=== PATIENT | female | born 1990 | race Caucasian/White ===

== ENCOUNTER 2018-05-15 09:04 | Emergency (ER) | payer OTHER, SELFPAY ==
--- NOTE | 2018-05-15 10:06 | ER ---
Nurse's Notes [facility] Name: Dimple Pak Age: 27 yrs Sex: Female : 1990 Arrival Date: 05/15/2018 Time: 09:07 Bed 15 Private MD: Diagnosis: Cutaneous abscess of face Presentation: 05/15 09:21 Presenting complaint: Patient states: I HAD A PIMPLE ON MY LIP A MONTH AGO AND I POPPED bp IT, AND I GUESS IT NEVER WENT AWAY. ALSO I GOT THESE BUMPS ON MY LEGS THAT I SCRATCHED AND THEY LOOK WEIRD. Transition of care: patient was not received from another setting of care. Onset of symptoms is unknown. Risk Assessment: Do you want to hurt yourself or someone else? Patient reports no desire to harm self or others. Initial Sepsis Screen: Does the patient meet any 2 criteria? No. Patient's initial sepsis screen is negative. Does the patient have a suspected source of infection? No. Patient's initial sepsis screen is negative. Care prior to arrival: None. 09:21 Method Of Arrival: Ambulatory bp 09:21 Acuity: STU 5 bp Triage Assessment: 09:23 General: Appears in no apparent distress. comfortable, slender, Behavior is calm, bp cooperative, appropriate for age. Pain: Complains of pain in mouth. EENT: No deficits noted. Neuro: Level of Consciousness is awake, alert, obeys commands, Oriented to person, place, time, situation, Appropriate for age. Cardiovascular: No deficits noted. Respiratory: Airway is patent Respiratory effort is even, unlabored, Respiratory pattern is regular, symmetrical. GI: No signs and/or symptoms were reported involving the gastrointestinal system. : No signs and/or symptoms were reported regarding the genitourinary system. Derm: Reports LEFT UPPER LIP RECURRENT "PIMPLE". Musculoskeletal: Circulation, motion, and sensation intact. Range of motion: intact in all extremities. 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 - Social history:: Smoking status: Patient uses tobacco products, smokes one pack cigarettes per day. - Ebola Screening: : Patient negative for fever greater than or equal to 101.5 degrees Fahrenheit, and additional compatible Ebola Virus Disease symptoms Patient denies exposure to infectious person Patient denies travel to an Ebola-affected area in the 21 days before illness onset No symptoms or risks identified at this time. Screenin:26 Abuse screen: Denies threats or abuse. Denies injuries from another. Nutritional bp screening: No deficits noted. Tuberculosis screening: No symptoms or risk factors identified. Fall Risk None identified. Assessment: 09:26 General: SEE TRIAGE NOTE. bp 10:15 Reassessment: D/C ON HOLD FOR SHOT TIME. bp 10:29 Reassessment: PT D/C HOME, DX WITH CUTANEOUS ABSCESS OF FACE. bp Vital Signs: 09:25 BP 134 / 99; Pulse 80; Resp 14; Temp 98; Pulse Ox 100% ; Weight 54.43 kg; Height 5 ft. bp 4 in. (162.56 cm); 10:20 BP 110 / 66; Pulse 58; Resp 16; Pulse Ox 100% ; bp 09:25 Body Mass Index 20.60 (54.43 kg, 162.56 cm) bp ED Course: 09:07 Patient arrived in ED. mr 09:14 Will Lyles, BRYAN is Primary Nurse. bp 09:20 Smith Mckinney NP is PHCP. pm1 09:20 Laurent Hooks MD is Attending Physician. pm1 09:22 Triage completed. bp 09:25 Arm band placed on. bp 09:26 Patient has correct armband on for positive identification. Bed in low position. Call bp light in reach. Side rails up X2. 10:30 No provider procedures requiring assistance completed. Patient did not have IV access bp during this emergency room visit. Administered Medications: 10:15 Drug: Tetanus-Diphtheria Toxoid Adult 0.5 ml {Hair Or Beauty Salon Assistant: Wedit. Exp: bp 04/30/2020. Lot #: [id number]. } Route: IM; Site: right deltoid; 10:28 Follow up: Response: No adverse reaction bp 10:15 Drug: Clindamycin 300 mg Route: PO; bp 10:28 Follow up: Response: No adverse reaction bp 10:26 Not Given (Other Intervention Used): Clindamycin 600 mg IM once bp Outcome: 10:06 Discharge ordered by . pm1 10:30 Discharged to home ambulatory. bp 10:30 Condition: stable 10:30 Discharge instructions given to patient, Instructed on discharge instructions, follow up and referral plans. medication usage, Demonstrated understanding of instructions, follow-up care, medications, Prescriptions given X 1. 10:31 Patient left the ED. bp Signatures: Sharita Lion HankSmith, ANALYST ANALYST pm1 Will Lyles, RN RN bp
--- NOTE | 2018-05-15 10:07 | EDPHYS ---
Physician Documentation [facility] Name: Dimple Pak Age: 27 yrs Sex: Female : 1990 Arrival Date: 05/15/2018 Time: 09:07 Bed 15 Private MD: ED Physician Laurent Hooks HPI: 05/15 10:00 This 27 yrs old Female presents to ER via Ambulatory with complaints of pm1 Abscess on face. 10:00 The patient presents with an abscess of the mouth. Description: raised, swollen. Onset: pm1 The symptoms/episode began/occurred 1 month(s) ago, and became worse yesterday. Possible cause(s): unknown. Associated signs and symptoms: Pertinent negatives: fever. Modifying factors: the symptoms are alleviated by squeezing the lesion and expressing the contents, the symptoms are aggravated by squeezing the lesion and expressing the contents, touching. Severity of symptoms: in the emergency department the symptoms are actually worse. The patient has not recently seen a physician. Ant bites to lower legs. Never been bitten by ants. Left side of mouth. Pimple to side of mouth for 1 month that got worse yesterday. Expressed pus, that relieved pain but more swollen.. 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 - Social history:: Smoking status: Patient uses tobacco products, smokes one pack cigarettes per day. - Ebola Screening: : Patient negative for fever greater than or equal to 101.5 degrees Fahrenheit, and additional compatible Ebola Virus Disease symptoms Patient denies exposure to infectious person Patient denies travel to an Ebola-affected area in the 21 days before illness onset No symptoms or risks identified at this time. ROS: 10:00 Constitutional: Negative for fever, chills, and weight loss, Eyes: Negative for injury, pm1 pain, redness, and discharge, ENT: Negative for injury, pain, and discharge, Neck: Negative for injury, pain, and swelling, Cardiovascular: Negative for chest pain, palpitations, and edema, Respiratory: Negative for shortness of breath, cough, wheezing, and pleuritic chest pain, Abdomen/GI: Negative for abdominal pain, nausea, vomiting, diarrhea, and constipation, Back: Negative for injury and pain, : Negative for injury, bleeding, discharge, and swelling, MS/Extremity: Negative for injury and deformity. 10:00 Neuro: Negative for headache, weakness, numbness, tingling, and seizure. 10:00 Skin: Positive for abscess, of the mouth, Negative for cellulitis. Exam: 10:00 Constitutional: This is a well developed, well nourished patient who is awake, alert, pm1 and in no acute distress. Head/Face: Normocephalic, atraumatic. Eyes: Pupils equal round and reactive to light, extra-ocular motions intact. Lids and lashes normal. Conjunctiva and sclera are non-icteric and not injected. Cornea within normal limits. Periorbital areas with no swelling, redness, or edema. ENT: Nares patent. No nasal discharge, no septal abnormalities noted. Tympanic membranes are normal and external auditory canals are clear. Oropharynx with no redness, swelling, or masses, exudates, or evidence of obstruction, uvula midline. Mucous membranes moist. Neck: Trachea midline, no thyromegaly or masses palpated, and no cervical lymphadenopathy. Supple, full range of motion without nuchal rigidity, or vertebral point tenderness. No Meningismus. Chest/axilla: Normal chest wall appearance and motion. Nontender with no deformity. No lesions are appreciated. Cardiovascular: Regular rate and rhythm with a normal S1 and S2. No gallops, murmurs, or rubs. Normal PMI, no JVD. No pulse deficits. Respiratory: Lungs have equal breath sounds bilaterally, clear to auscultation and percussion. No rales, rhonchi or wheezes noted. No increased work of breathing, no retractions or nasal flaring. Abdomen/GI: Soft, non-tender, with normal bowel sounds. No distension or tympany. No guarding or rebound. No evidence of tenderness throughout. Back: No spinal tenderness. No costovertebral tenderness. Full range of motion. 10:00 Skin: Appearance: normal except for affected area, abscess, that is small, approximately 1 cm(s), of the mouth, negative drainage, fluctuance, pointing, surrounding cellulitis. Vital Signs: 09:25 BP 134 / 99; Pulse 80; Resp 14; Temp 98; Pulse Ox 100% ; Weight 54.43 kg; Height 5 ft. bp 4 in. (162.56 cm); 10:20 BP 110 / 66; Pulse 58; Resp 16; Pulse Ox 100% ; bp 09:25 Body Mass Index 20.60 (54.43 kg, 162.56 cm) bp MDM: 09:21 Patient medically screened. pm1 09:40 Data reviewed: vital signs. Data interpreted: Pulse oximetry: on room air is 100 %. pm1 Interpretation: normal. Counseling: I had a detailed discussion with the patient and/or guardian regarding: the historical points, exam findings, and any diagnostic results supporting the discharge/admit diagnosis, the need for outpatient follow up, to return to the emergency department if symptoms worsen or persist or if there are any questions or concerns that arise at home. Administered Medications: 10:15 Drug: Tetanus-Diphtheria Toxoid Adult 0.5 ml {Senior Benefits Analyst: [employer]. Exp: bp 04/30/2020. Lot #: [id number]. } Route: IM; Site: right deltoid; 10:28 Follow up: Response: No adverse reaction bp 10:15 Drug: Clindamycin 300 mg Route: PO; bp 10:28 Follow up: Response: No adverse reaction bp 10:26 Not Given (Other Intervention Used): Clindamycin 600 mg IM once bp Disposition: 18 10:06 Discharged to Home. Impression: Cutaneous abscess of face. - Condition is Stable. - Discharge Instructions: Skin Abscess. - Prescriptions for Clindamycin HCl 300 mg Oral Capsule - take 1 capsule by ORAL route every 6 hours for 10 days; 40 capsule. - Medication Reconciliation Form, Thank You Letter, Antibiotic Education form. - Follow up: Emergency Department; When: As needed; Reason: Worsening of condition. Follow up: Private Physician; When: 2 - 3 days; Reason: Recheck today's complaints, Continuance of care, Re-evaluation by your physician. - Problem is new. - Symptoms have improved. Addendum: 05/16/2018 13:38 Co-signature as Attending Physician, Laurent Hooks MD I agree with the assessment and k dr plan of care. Signatures: Laurent Hooks MD MD [facility] Smith Mckinney NP GEOTHERMAL PLANT MANAGER pm1 Rafal, Will, RN RN bp Corrections: (The following items were deleted from the chart) 05/15 10:31 10:06 05/15/2018 10:06 Discharged to Home. Impression: Cutaneous abscess of face. bp Condition is Stable. Forms are Medication Reconciliation Form, Thank You Letter, Antibiotic Education, Prescription Opioid Use. Follow up: Emergency Department; When: As needed; Reason: Worsening of condition. Follow up: Private Physician; When: 2 - 3 days; Reason: Recheck today's complaints, Continuance of care, Re-evaluation by your physician. Problem is new. Symptoms have improved. pm1
[2018-05-15] MEDS ORDERED: CLINDAMYCIN HCL 150 MG CAP ONE (10:24)
[2018-05-15] MEDS ORDERED: TETANUS & DIPHTHERIA TOX,ADULT 0.5 ML VIAL ONE (10:25)
== END 2018-05-15 10:31 | disposition home or self-care (01) ==
LOC: ER 09:04
DX: L02.01 Cutaneous abscess of face (principal); F17.210 Nicotine dependence, cigarettes, uncomplicated; Z23 Encounter for immunization
CPT/HCPCS: 90714; 99283

== ENCOUNTER 2018-07-12 11:04 | Emergency (ER) | payer OTHER, SELFPAY ==
--- OUTSIDE RECORDS SUMMARY | 2018-07-12 11:06 | XMS REPORT ---
:1990 [facility] Address [address] [place] [address] Dr. Ramírez [address] [place] [id number] Care Team Providers Name Role Phone Unavailable Unavailable Unavailable Problems This patient has no known problems. Allergies, Adverse Reactions, Alerts This patient has no known allergies or adverse reactions. Medications This patient has no known medications.
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
[2018-07-12 15:34] LABS: Urine Blood TRACE (NEG); Urine Glucose NEGATIVE (NEG); Urine Protein 2+ (NEG); Urine Specific Gravity 1.025 (1.005-1.030); Urine pH 5.5 (5.0-7.0)
== END 2018-07-12 13:36 | disposition home or self-care (01) ==
LOC: ER 11:04
DX: S00.90XA Unspecified superficial injury of unspecified part of head, initial encounter (principal); S80.211A Abrasion, right knee, initial encounter; S50.312A Abrasion of left elbow, initial encounter; M25.561 Pain in right knee; R51 Headache; Y04.8XXA Assault by other bodily force, initial encounter; F17.210 Nicotine dependence, cigarettes, uncomplicated
CPT/HCPCS: 70450; 72125; 81003; 81025; 99284

== ENCOUNTER 2018-12-26 17:16 | Emergency (ER) | payer OTHER ==
--- OUTSIDE RECORDS SUMMARY | 2018-12-26 17:19 | XMS REPORT ---
:1990 [facility] Address [address] [place] [address] Dr. Ramírez [address] [place] [id number] Care Team Providers Name Role Phone Unavailable Unavailable Unavailable Problems This patient has no known problems. Allergies, Adverse Reactions, Alerts This patient has no known allergies or adverse reactions. Medications This patient has no known medications.
[2018-12-26] MEDS ORDERED: FENTANYL CITR 100 MCG/2 ML ONE (18:28)
[2018-12-26] MEDS ORDERED: NA CHLORIDE 0.9% 2,000 ML ONE (18:28)
[2018-12-26 18:35] LABS: Absolute Lymphocytes (CBC) 1.6 K/uL (0.7-4.9); Absolute Monocytes 0.9 K/uL (0.1-1.3); Absolute Neutrophil 6.8 K/uL (1.8-8.0); Basophils % 0.4 % (0-1.3); Eosinophils % 1.3 % (0-4.4); Hematocrit 38.7 % (36.0-45.0); MPV 9.5 fL (7.6-11.3); Monocytes % 9.5 % (3.3-12.3); RBC Red Blood Cell Count 4.58 M/uL (3.86-4.86)
[2018-12-26 18:44] LABS: Potassium 3.3 mmol/L (3.5-5.1)
[2018-12-26 18:45] LABS: Urine Blood TRACE (NEG); Urine Glucose NEGATIVE (NEG); Urine Protein 2+ (NEG); Urine pH 5.5 (5.0-7.0)
[2018-12-26] MEDS ORDERED: CLINDAMYCIN INJ 300 MG in NA CHLORIDE 0.9% 50 ML IV SCH (19:00)
--- NOTE | 2018-12-26 19:45 | RAD REPORT ---
EXAM DESCRIPTION: CT - Soft Tissue Neck W/Contr CLINICAL HISTORY: FACIAL PAIN Facial pain and swelling. COMPARISON: Head C Spine Mpr Wo Con dated 07/12/[address] scans are performed using dose optimization technique as appropriate and may includ e automated exposure control or mA/KV adjustment according to patient size. FINDINGS: A large abscess is present along the buccal surface of the right mandibular ramus measurin g 27 x 14 mm. The abscess appears to originate from a large 9 mm periapical abscess involving the rig ht mandibular second molar which is significantly eroded. There is significant right-sided soft tissu e swelling involving the right aspect of the mandible. Multiple enlarged submental and right submandi bular lymph nodes are present. Reactive adenopathy seen also along the right jugular chain. No vascul ar thrombosis identified. No extension of the abscess into the mediastinum seen. No additional abnormality is seen involving the neck soft tissues. IMPRESSION: Large odontogenic abscess seen along the right buccal cortex of the mandible as detailed above.
[2018-12-26] MEDS ORDERED: LIDOCAINE JELLY 2%- 5 ML TUBE ONE ×2 (20:35→22:22)
[2018-12-26] MEDS ORDERED: MORPHINE 4 MG/ML SYR ONE ×2 (20:36→22:22)
--- NOTE | 2018-12-26 22:03 | EDPHYS ---
Physician Documentation [facility] Name: Dimple Pak Age: 28 yrs Sex: Female : 1990 Arrival Date: 12/26/2018 Time: 17:20 Bed 14 Private MD: ED Physician Remy Recinos HPI: 12/26 17:59 This 28 yrs old Female presents to ER via Ambulatory with complaints of snw Toothache. 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 - Social history:: Smoking status: Patient uses tobacco products, smokes one pack cigarettes per day. - Ebola Screening: : No symptoms or risks identified at this time. ROS: 17:58 Constitutional: Negative for fever, chills, and weight loss, Eyes: Negative for injury, snw pain, redness, and discharge, Neck: Negative for injury, pain, and swelling, Cardiovascular: Negative for chest pain, palpitations, and edema, Respiratory: Negative for shortness of breath, cough, wheezing, and pleuritic chest pain, Abdomen/GI: Negative for abdominal pain, nausea, vomiting, diarrhea, and constipation, Back: Negative for injury and pain, : Negative for injury, bleeding, discharge, and swelling, MS/Extremity: Negative for injury and deformity, Skin: Negative for injury, rash, and discoloration, Neuro: Negative for headache, weakness, numbness, tingling, and seizure, Psych: Negative for depression, anxiety, suicide ideation, homicidal ideation, and hallucinations. 17:58 ENT: Positive for dental pain, Teeth pain mandibular edema and mild erythema, cannot fully open mouth. Exam: 17:56 Constitutional: This is a well developed, well nourished patient who is awake, alert, snw and in no acute distress. Head/Face: Normocephalic, atraumatic. Eyes: Pupils equal round and reactive to light, extra-ocular motions intact. Lids and lashes normal. Conjunctiva and sclera are non-icteric and not injected. Cornea within normal limits. Periorbital areas with no swelling, redness, or edema. Neck: Trachea midline, no thyromegaly or masses palpated, and no cervical lymphadenopathy. Supple, full range of motion without nuchal rigidity, or vertebral point tenderness. No Meningismus. Chest/axilla: Normal chest wall appearance and motion. Nontender with no deformity. No lesions are appreciated. Cardiovascular: tachycardic rate and rhythm with a normal S1 and S2. No gallops, murmurs, or rubs. Normal PMI, no JVD. No pulse deficits. Respiratory: Lungs have equal breath sounds bilaterally, clear to auscultation and percussion. No rales, rhonchi or wheezes noted. No increased work of breathing, no retractions or nasal flaring. Abdomen/GI: Soft, non-tender, with normal bowel sounds. No distension or tympany. No guarding or rebound. No evidence of tenderness throughout. Back: No spinal tenderness. No costovertebral tenderness. Full range of motion. Skin: Warm, dry with normal turgor. Normal color with no rashes, no lesions, and no evidence of cellulitis. MS/ Extremity: Pulses equal, no cyanosis. Neurovascular intact. Full, normal range of motion. Neuro: Awake and alert, GCS 15, oriented to person, place, time, and situation. Cranial nerves II-XII grossly intact. Motor strength 5/5 in all extremities. Sensory grossly intact. Cerebellar exam normal. Normal gait. Psych: Awake, alert, with orientation to person, place and time. Behavior, mood, and affect are within normal limits. 17:56 ENT: Mouth: Oral mucosa: moist, Posterior pharynx: is normal, Dental exam: dental caries, that is moderate, specifically in the lower right first molar (#30), mild trismus, erythema to anterior, mandibular area and anterior neck. Vital Signs: 17:48 BP 140 / 90; Pulse 111; Resp 16; Temp 97.8; Pulse Ox 98% on R/A; Weight 52.16 kg; la1 Height 5 ft. 4 in. (162.56 cm); Pain 10/10; 18:20 BP 136 / 91; Pulse 93; Resp 18 S; Pulse Ox 100% on R/A; Pain 10/10; aa5 19:47 BP 142 / 79; Pulse 77; Resp 18; Pulse Ox 98% on R/A; tl2 20:18 BP 135 / 99; Pulse 92; Resp 18; Pulse Ox 100% on R/A; tl2 21:30 BP 108 / 78; Pulse 112; Resp 22; Pulse Ox 98% on R/A; tl2 22:10 BP 121 / 107; Pulse 80; Resp 20; Temp 99.7(O); Pulse Ox 100% on R/A; tl2 17:48 Body Mass Index 19.74 (52.16 kg, 162.56 cm) la1 Procedures: 22:13 I \T\ D: Incision and drainage was performed for an abscess of the right Anesthetized snw with 2 ml's 1% Lidocaine. Incised with needle. Drained moderate amount purulent fluid. the patient tolerated the procedure well, 4ml. MDM: 17:56 Patient medically screened. snw 21:58 Data reviewed: vital signs, nurses notes. Data interpreted: Pulse oximetry: on room air snw is 98 %. Interpretation: normal. Counseling: I had a detailed discussion with the patient and/or guardian regarding: the historical points, exam findings, and any diagnostic results supporting the discharge/admit diagnosis, lab results, radiology results, the need for outpatient follow up, for definitive care, to return to the emergency department if symptoms worsen or persist or if there are any questions or concerns that arise at home. Special discussion: Based on the history and exam findings, there is no indication for further emergent testing or inpatient evaluation. I discussed with the patient/guardian the need to see a dentist for further evaluation of the symptoms. 12/26 18:10 Order name: Basic Metabolic Panel; Complete Time: 18:46 snw 12/26 18:10 Order name: CBC with Diff; Complete Time: 18:46 snw 12/26 18:10 Order name: CT Soft Tissue Neck W/contr; Complete Time: 19:57 snw 12/26 18:37 Order name: Urine Dipstick--Ancillary (enter results); Complete Time: 18:47 eb 12/26 18:37 Order name: Urine --Ancillary (enter results); Complete Time: 18:47 eb 12/26 18:10 Order name: IV Saline Lock; Complete Time: 18:34 snw 12/26 18:10 Order name: Labs collected and sent; Complete Time: 18:34 snw Administered Medications: 18:25 Drug: NS 0.9% 1000 ml Route: IV; Rate: 1 bolus; Site: right forearm; aa5 19:07 Follow up: IV Status: Completed infusion; IV Intake: 1000ml aa5 18:25 Drug: Clindamycin 300 mg Route: IVPB; Infused Over: 30 mins; Site: right forearm; aa5 19:20 Follow up: IV Status: Completed infusion; IV Intake: 50ml tl2 18:25 Drug: fentaNYL (PF) 50 mcg Route: IVP; Site: right forearm; aa5 19:05 Follow up: Response: No adverse reaction aa5 19:07 Drug: NS 0.9% 1000 ml Route: IV; Rate: 125 ml/hr; Site: right forearm; aa5 22:45 Follow up: IV Status: Completed infusion; IV Intake: 300ml tl2 19:07 Drug: fentaNYL (PF) 50 mcg Route: IVP; Site: right forearm; aa5 19:15 Follow up: Response: No adverse reaction aa5 20:45 Drug: morphine 4 mg Route: IVP; Site: right forearm; tl2 21:10 Follow up: Response: No adverse reaction; Pain is decreased tl2 20:57 Drug: Lidocaine Gel 2 % 1 application Route: Mucous Membrane; tl2 22:10 Drug: morphine 4 mg Route: IM; Site: right deltoid; tl2 22:44 Follow up: Response: No adverse reaction; Medication administered at discharge. tl2 22:10 Drug: Lidocaine Gel 2 % 1 application Route: Mucous Membrane; tl2 Disposition: 12/26/18 22:03 Discharged to Home. Impression: Acute apical periodontitis of pulpal origin, Odontogenic abscess. - Condition is Stable. - Discharge Instructions: Dental Abscess, Dental Caries, Adult, Dental Pain, Root Canal, Diet and Dental Disease, Preventive Dental Care, Adult. - Prescriptions for chlorhexidine gluconate 0.12 % Mucous Membrane mouthwash - place 15 milliliter by MUCOUS MEMBRANE route 2 times per day after brushing teeth, swish in mouth for 30 seconds then spit out; 480 milliliter. Clindamycin HCl 300 mg Oral Capsule - take 1 capsule by ORAL route every 6 hours for 10 days; 40 capsule. Tylenol- Codeine #3 300-30 mg Oral Tablet - take 2 tablets by ORAL route every 6 hours As needed; 15 tablet. Diclofenac Sodium 75 mg Oral Tablet Sustained Release - take 1 tablet by ORAL route 2 times per day; 30 tablet. - Medication Reconciliation Form, Thank You Letter, Antibiotic Education, Prescription Opioid Use form. - Follow up: Emergency Department; When: As needed; Reason: Worsening of condition. Follow up: Private Physician; When: 1 - 2 days; Reason: Recheck today's complaints, Continuance of care, Re-evaluation by your physician. Addendum: 12/29/2018 08:42 Co-signature as Attending Physician, Remy Recinos MD I agree with the assessment and c tay plan of care. Signatures: Dispatcher [employer] EDGA Remy Recinos MD MD cha Therrien, Shelly, BENCH GRINDER-C BENCH GRINDER-Csnw Julia Webber, RN RN aa5 Clay Russo RN RN la1 Chani Vazquez, RN RN tl2 Corrections: (The following items were deleted from the chart) 12/26 22:45 22:03 12/26/2018 22:03 Discharged to Home. Impression: Acute apical periodontitis of tl2 pulpal origin; Odontogenic abscess. Condition is Stable. Forms are Medication Reconciliation Form, Thank You Letter, Antibiotic Education, Prescription Opioid Use. Follow up: Emergency Department; When: As needed; Reason: Worsening of condition. Follow up: Private Physician; When: 1 - 2 days; Reason: Recheck today's complaints, Continuance of care, Re-evaluation by your physician. snw
--- NOTE | 2018-12-26 22:03 | ER ---
Nurse's Notes [facility] Name: Dimple Pak Age: 28 yrs Sex: Female : 1990 Arrival Date: 12/26/2018 Time: 17:20 Bed 14 Private MD: Diagnosis: Acute apical periodontitis of pulpal origin;Odontogenic abscess Presentation: 12/26 17:46 Presenting complaint: Patient states: I have been having problems with my teeth on the la1 left lower, been on PCN and clindamycin for two days but the swelling is just getting worse. Transition of care: patient was not received from another setting of care. Onset of symptoms was December 26, 2018. Risk Assessment: Do you want to hurt yourself or someone else? Patient reports no desire to harm self or others. Initial Sepsis Screen: Does the patient meet any 2 criteria? No. Patient's initial sepsis screen is negative. Does the patient have a suspected source of infection? No. Patient's initial sepsis screen is negative. Care prior to arrival: None. 17:46 Method Of Arrival: Ambulatory la1 17:46 Acuity: STU 3 la1 UPPER CUTTER: 17:48 LMP N/A - Irregular menses la1 Historical: - Allergies: 17:47 No Known Allergies; la1 - PMHx: 17:47 Anxiety; la1 - PSHx: 17:47 Hernia repair; la1 - Immunization history:: Adult Immunizations up to date. - Social history:: Smoking status: Patient uses tobacco products, smokes one pack cigarettes per day. - Ebola Screening: : No symptoms or risks identified at this time. Screenin:10 Abuse screen: Denies threats or abuse. Nutritional screening: No deficits noted. aa5 Tuberculosis screening: No symptoms or risk factors identified. Fall Risk None identified. Assessment: 18:10 General: Appears uncomfortable, Behavior is cooperative, restless. Pain: Complains of aa5 pain in right jaw Pain radiates to right side of neck Pain currently is 10 out of 10 on a pain scale. Quality of pain is described as aching, tender, throbbing, Pain began Pt states "December 13" Is continuous. Neuro: Level of Consciousness is awake, alert, obeys commands, Oriented to person, place, time, situation. Cardiovascular: Heart tones S1 S2 present Rhythm is regular. Respiratory: Airway is patent Respiratory effort is even, unlabored, Respiratory pattern is regular, symmetrical. GI: No signs and/or symptoms were reported involving the gastrointestinal system. : No signs and/or symptoms were reported regarding the genitourinary system. EENT: Reports pain to right lower teeth. Pt states "I know I have a broken molar and I need my wisdom tooth taken out". Swelling noted to right jaw . Derm: Skin is pink, warm \\T\\ dry. Musculoskeletal: Range of motion: intact in all extremities. 19:05 Reassessment: Patient is alert, oriented x 3, equal unlabored respirations, skin aa5 warm/dry/pink. General: Appears uncomfortable. Pain: Pain currently is 9 out of 10 on a pain scale. 19:10 General: Appears uncomfortable, Behavior is cooperative, appropriate for age, anxious. tl2 Pain: Complains of pain in right jaw Pain radiates to right neck Pain currently is 9 out of 10 on a pain scale. Quality of pain is described as aching, throbbing. Neuro: Level of Consciousness is awake, alert, obeys commands, Oriented to person, place, time, situation. Cardiovascular: Denies chest pain. Respiratory: Airway is patent Respiratory effort is even, unlabored, Respiratory pattern is regular, symmetrical. GI: No signs and/or symptoms were reported involving the gastrointestinal system. : No signs and/or symptoms were reported regarding the genitourinary system. Derm: Skin is pink, warm \\T\\ dry. 19:15 Reassessment: Patient is alert, oriented x 3, equal unlabored respirations, skin aa5 warm/dry/pink. Pt taken to CT via wheelchair . 20:30 Reassessment: 4 mL of purulent fluid extracted from abscess. pt unable to tolerate tl2 continuing with procedure. 22:30 Reassessment: Patient appears in no apparent distress at this time. Patient and/or tl2 family updated on plan of care and expected duration. Pain level reassessed. Patient is alert, oriented x 3, equal unlabored respirations, skin warm/dry/pink. pt verbalized understanding of discharge instructions and need to follow up JESSEE to continue draining abscess. Pt verbalized understanding of prescription usage. Vital Signs: 17:48 BP 140 / 90; Pulse 111; Resp 16; Temp 97.8; Pulse Ox 98% on R/A; Weight 52.16 kg; la1 Height 5 ft. 4 in. (162.56 cm); Pain 10/10; 18:20 BP 136 / 91; Pulse 93; Resp 18 S; Pulse Ox 100% on R/A; Pain 10/10; aa5 19:47 BP 142 / 79; Pulse 77; Resp 18; Pulse Ox 98% on R/A; tl2 20:18 BP 135 / 99; Pulse 92; Resp 18; Pulse Ox 100% on R/A; tl2 21:30 BP 108 / 78; Pulse 112; Resp 22; Pulse Ox 98% on R/A; tl2 22:10 BP 121 / 107; Pulse 80; Resp 20; Temp 99.7(O); Pulse Ox 100% on R/A; tl2 17:48 Body Mass Index 19.74 (52.16 kg, 162.56 cm) la1 ED Course: 17:20 Patient arrived in ED. es 17:47 Triage completed. la1 17:48 Arm band placed on right wrist. la1 17:49 Twyla Friedman, MARVIN[facility]. snw 17:49 Remy Recinos MD is Attending Physician. snw 17:49 Julia Webber RN is Primary Nurse. aa5 18:10 Patient has correct armband on for positive identification. Placed in gown. Bed in low aa5 position. Call light in reach. Side rails up X 1. Adult w/ patient. 18:22 Initial lab(s) drawn, by me, sent to lab. Inserted saline lock: 20 gauge in right aa5 forearm, using aseptic technique. Blood collected. 18:22 No provider procedures requiring assistance completed. Urine collected: clean catch aa5 specimen, clear, UPT: Negative. 19:05 Report given to BRYAN Wilde. aa5 19:29 CT completed. Patient tolerated procedure well. Patient moved back from CT. az 19:31 CT Soft Tissue Neck W/contr In Process Unspecified. EDMS 21:30 Assist provider with I \\T\\ D: of an abscess on right cheek Performed by Twyla granda2 IT INFRASTRUCTURE ENGINEER-C. 22:42 IV discontinued, intact, bleeding controlled, No redness/swelling at site. Pressure tl2 dressing applied. Administered Medications: 18:25 Drug: NS 0.9% 1000 ml Route: IV; Rate: 1 bolus; Site: right forearm; aa5 19:07 Follow up: IV Status: Completed infusion; IV Intake: 1000ml aa5 18:25 Drug: Clindamycin 300 mg Route: IVPB; Infused Over: 30 mins; Site: right forearm; aa5 19:20 Follow up: IV Status: Completed infusion; IV Intake: 50ml tl2 18:25 Drug: fentaNYL (PF) 50 mcg Route: IVP; Site: right forearm; aa5 19:05 Follow up: Response: No adverse reaction aa5 19:07 Drug: NS 0.9% 1000 ml Route: IV; Rate: 125 ml/hr; Site: right forearm; aa5 22:45 Follow up: IV Status: Completed infusion; IV Intake: 300ml tl2 19:07 Drug: fentaNYL (PF) 50 mcg Route: IVP; Site: right forearm; aa5 19:15 Follow up: Response: No adverse reaction aa5 20:45 Drug: morphine 4 mg Route: IVP; Site: right forearm; tl2 21:10 Follow up: Response: No adverse reaction; Pain is decreased tl2 20:57 Drug: Lidocaine Gel 2 % 1 application Route: Mucous Membrane; tl2 22:10 Drug: morphine 4 mg Route: IM; Site: right deltoid; tl2 22:44 Follow up: Response: No adverse reaction; Medication administered at discharge. tl2 22:10 Drug: Lidocaine Gel 2 % 1 application Route: Mucous Membrane; tl2 Intake: 19:07 IV: 1000ml; Total: 1000ml. aa5 19:20 IV: 50ml; Total: 1050ml. tl2 22:45 IV: 300ml; Total: 1350ml. tl2 Outcome: 22:03 Discharge ordered by MD. geronimo 22:42 Discharged to home ambulatory, with family. tl2 22:42 Condition: stable 22:42 Discharge instructions given to patient, family, Instructed on discharge instructions, follow up and referral plans. medication usage, Demonstrated understanding of instructions, follow-up care, medications, wound care, Prescriptions given X 4. 22:45 Patient left the ED. tl2 Signatures: [facility] EDTwyla Wilder FNP-C FNP-Olivia Parra Audri, RN RN aa5 Clay Russo RN RN la1 Chani Vazquez RN RN tl2 Rachana Esteban Corrections: (The following items were deleted from the chart) 19:47 19:21 BP 142 / 79; tl2 tl2
== END 2018-12-26 22:45 | disposition home or self-care (01) ==
LOC: ER 17:16
PROC: 0C9XXZ0 Drainage of Lower Tooth, External Approach, Single (ICD-10-PCS; principal; 2018-12-26)
DX: K04.4 Acute apical periodontitis of pulpal origin (principal); F17.210 Nicotine dependence, cigarettes, uncomplicated
CPT/HCPCS: 36415; 70491; 80048; 81003; 81025; 85025; 96361; 96365; 96372; 96375; 99284; J3010; J7030; Q9967